=== PATIENT | male | born 1995 | race Two or more races ===

== ENCOUNTER 2017-01-01 10:59 | Emergency (ER) | payer BC ==
[2017-01-01 11:08] VITALS: BP 143/78; PULSE 72; TEMP 98.6; BMI 22.0
[2017-01-01] MEDS ORDERED: DEXAMETHASONE SOD PHOSPHATE 10 MG/1 ML VIAL IM ONE (11:41)
[2017-01-01] MEDS ORDERED: DEXAMETHASONE SOD PHOSPHATE 10 MG/1 ML VIAL ONE (11:43)
--- NOTE | 2017-01-01 11:50 | PDOC ---
History of Present Illness - General Chief Complaint: Sore Throat Stated Complaint: THROAT PAIN Time Seen by Provider: 01/01/17 11:13 History Source: Patient Exam Limitations: No Limitations - History of Present Illness Initial Comments: 01/01/17 11:47 21 yr male with c/o sore throat worse with swallowing. no fever pain for 3 days. Past History - Travel Traveled outside of the country in the last 30 days: No Close contact w/someone who was outside of country & ill: No - Past Medical History Allergies/Adverse Reactions: Allergies Allergy/AdvReac Type Severity Reaction Status Date / Time No Known Allergies Allergy Verified 01/01/17 11:04 Home Medications: Ambulatory Orders No Home Medications 0 dose .ROUTE UTDICT 09/02/12 Acetaminophen W/ Codeine #3 [Tylenol # 3 -] 1 tab PO Q6H PRN #10 tablet MDD 6 tabs 01/01/17 Penicillin V Potassium [Pen Vee K -] 500 mg PO BID #20 tablet 01/01/17 Other medical history: denies - Family Disease History Comment:: 01/01/17 11:47 none - Psycho/Social/Smoking Cessation Hx Anxiety: No Suicidal Ideation: No Smoking Status: No Smoking History: Never smoked Number of Cigarettes Smoked Daily: 0 Information on smoking cessation initiated: No Hx Alcohol Use: No Drug/Substance Use Hx: No Substance Use Type: None Review of Systems - Review of Systems Able to Perform ROS?: Yes Is the patient limited Rwandan proficient: No Constitutional: No: Symptoms Reported HEENTM: Yes: See HPI Respiratory: No: Symptoms reported Cardiac (ROS): No: Symptoms Reported ABD/GI: No: Symptoms Reported : No: Symptoms Reported Musculoskeletal: No: Symptoms Reported Integumentary: No: Symptoms Reported Neurological: No: Symptoms reported *Physical Exam - Vital Signs Last Vital Signs Temp Pulse Resp BP Pulse Ox 98.6 F 72 18 143/78 100 01/01/17 11:03 01/01/17 11:03 01/01/17 11:03 01/01/17 11:03 01/01/17 11:03 - Physical Exam General Appearance: Yes: Nourished, Appropriately Dressed HEENT: positive: EOMI, ERKIA, Pharyngeal Erythema, Tonsillar Erythema Neck: positive: Lymphadenopathy (R). negative: Tender Respiratory/Chest: positive: Lungs Clear, Normal Breath Sounds. 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, Fully Oriented, Alert, Normal Mood/ Affect, Normal Response, Motor Strength 02/12 ED Treatment Course - Medications Given in the ED: ED Medications Discontinued Medications Generic Name Dose Route Start Last Admin Trade Name Freq PRN Reason Stop Dose Admin Dexamethasone Sodium Phosphate 10 mg 01/01/17 11:41 01/01/17 11:45 Decadron Injection - IM 01/01/17 11:42 10 mg ONCE ONE Administration Medical Decision Making - Medical Decision Making 01/01/17 11:48 cc: sore throat, 3 days getting worse will swab for strep decadron IM *DC/Admit/Observation/Transfer Diagnosis at time of Disposition: Pharyngitis Qualifiers: Pharyngitis/tonsillitis etiology: unspecified etiology Qualified Code(s): J02.9 - Acute pharyngitis, unspecified - Discharge Dispostion Disposition: HOME Condition at time of disposition: Good - Prescriptions Prescriptions: Penicillin V Potassium [Pen Vee K -] 500 mg PO BID #20 tablet Acetaminophen W/ Codeine #3 [Tylenol # 3 -] 1 tab PO Q6H PRN #10 tablet MDD 6 tabs PRN Reason: Severe Pain - Referrals Referrals: Home Raya MD [Staff Physician] - - Patient Instructions Additional Instructions: gargle with warm salt water 4-5 times a day soft foods ice pops, jello ice cream take the antibiotics as prescribed for 10 days return to ER for any worsening symptoms or with the ENT for follow up take tylenol #3 for severe pain take motrin 600mg for mild to moderate pain
[2017-01-01] MEDS ORDERED: IBUPROFEN 600 MG TABLET (FP) PO ONE (12:10)
[2017-01-01] MEDS ORDERED: IBUPROFEN 400 MG TABLET (FP) PO ONE (12:12)
== END 2017-01-01 12:24 | disposition home or self-care (01) ==
LOC: JERFT 10:59 → JER 10:59 → JERFT 12:24
PROC: 3E023GC Introduction of Other Therapeutic Substance into Muscle, Percutaneous Approach (ICD-10-PCS; principal; 2017-01-01)
DX: J02.9 Acute pharyngitis, unspecified (principal)
CPT/HCPCS: 87070; 87430; 99281-25

== ENCOUNTER 2017-01-03 13:40 | Emergency (ER) | payer BC ==
[2017-01-03 13:45] VITALS: BP 141/75; PULSE 67; TEMP 99.3; BMI 24.4
[2017-01-03] MEDS ORDERED: KETOROLAC TROMETHAMINE 30 MG/1 ML VIAL ONE (14:14)
[2017-01-03] MEDS ORDERED: KETOROLAC TROMETHAMINE 30 MG/1 ML VIAL IVPUSH ONE (14:14)
[2017-01-03] MEDS ORDERED: DEXAMETHASONE SOD PHOSPHATE 10 MG/1 ML VIAL ONE (14:14)
[2017-01-03] MEDS ORDERED: SODIUM CHLORIDE 1,000 ML IV STA (14:15)
[2017-01-03] MEDS ORDERED: DEXAMETHASONE SOD PHOSPHATE 10 MG/1 ML VIAL IVPUSH ONE (14:15)
[2017-01-03] MEDS ORDERED: SODIUM CHLORIDE 1,000 ML IV ONE (14:16)
--- NOTE | 2017-01-03 14:26 | PDOC ---
History of Present Illness - General Chief Complaint: Sore Throat Stated Complaint: PAIN Time Seen by Provider: 01/03/17 14:05 History Source: Patient Exam Limitations: No Limitations - History of Present Illness Initial Comments: 01/03/17 14:41 Was seen here for severe throat pain, rapid strep test was negative, but patient placed on penicillin and given Tylenol 3 for pain relief. A dose of Decadron while he was in the emergency department and patient states felt some improvement that evening. However the past couple days have progressively become worse where he is now unable to tolerate by mouth fluids, feels feverish , and throat pain has progressively become worse. Has been using ibuprofen in the Tylenol 3 with minimal resolved. Denies cough, runny nose, any abdominal pain although is hungry as he is unable to eat. Timing/Duration: reports: getting worse Severity: reports: moderate, severe Associated Symptoms: reports: fever/chills, headache, sore throat. denies: nasal congestion, nasal drainage Past History - Travel Traveled outside of the country in the last 30 days: No Close contact w/someone who was outside of country & ill: No - Past Medical History Allergies/Adverse Reactions: Allergies Allergy/AdvReac Type Severity Reaction Status Date / Time No Known Allergies Allergy Verified 01/03/17 13:45 Home Medications: Ambulatory Orders No Home Medications 0 dose .ROUTE UTDICT 09/02/12 Acetaminophen W/ Codeine #3 [Tylenol # 3 -] 1 tab PO Q6H PRN #10 tablet MDD 6 tabs 01/01/17 Penicillin V Potassium [Pen Vee K -] 500 mg PO BID #20 tablet 01/01/17 Oxycodone HCl/Acetaminophen [Percocet 5-325 mg Tablet -] 1 - 2 tab PO Q4H PRN # 10 tablet MDD 4 01/03/17 Prednisone [Deltasone -] 20 mg PO BID #10 tablet 01/03/17 Other medical history: NONE - Psycho/Social/Smoking Cessation Hx Anxiety: No Suicidal Ideation: No Smoking Status: No Smoking History: Never smoked Number of Cigarettes Smoked Daily: 0 Hx Alcohol Use: No Drug/Substance Use Hx: No Substance Use Type: None Review of Systems - Review of Systems Able to Perform ROS?: Yes Is the patient limited Greenlandic proficient: Yes Constitutional: Yes: Symptoms Reported, See HPI, Fever, Loss of Appetite, Malaise HEENTM: Yes: Symptoms Reported, See HPI, Throat Pain, Throat Swelling, Difficulty Swallowing Respiratory: Yes: See HPI. No: Symptoms reported, Cough, Wheezing ABD/GI: Yes: See HPI. No: Symptoms Reported : No: See HPI Musculoskeletal: Yes: Symptoms Reported, See HPI, Muscle Pain, Muscle Weakness Integumentary: No: Symptoms Reported All Other Systems: Reviewed and Negative *Physical Exam - Vital Signs Last Vital Signs Temp Pulse Resp BP Pulse Ox 99.3 F 67 20 141/75 100 01/03/17 13:41 01/03/17 13:41 01/03/17 13:41 01/03/17 13:41 01/03/17 13:41 - Physical Exam General Appearance: Yes: Nourished, Appropriately Dressed, Mild Distress, Moderate Distress HEENT: positive: TMs Normal, Muffled/Hoarse voice, Pharyngeal Erythema (no exudate or uvula deviation), Tonsillar Erythema. negative: Normal ENT Inspection, Pharynx Normal, Tonsillar Exudate Neck: positive: Tender, Supple, Lymphadenopathy (R), Lymphadenopathy (L) Respiratory/Chest: positive: Lungs Clear, Normal Breath Sounds. negative: Rhonchi, Wheezing Cardiovascular: positive: Regular Rate Gastrointestinal/Abdominal: positive: Normal Bowel Sounds, Soft. 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 Microbiology reports negative throat culture Medical Decision Making - Medical Decision Making 01/03/17 17:24 Much improved after 3 L of IV fluid, Decadron 10 mg, Toradol 30 mg IV. Patient states still has pain however is much improved from his initial arrival symptoms. Will follow-up with his PMD, and understands if symptoms worsen, worsened fever, swelling to throat will follow-up either here or at larger institution. Will continue prednisone, complete the penicillin and has 10 Percocet tablets for severe pain *DC/Admit/Observation/Transfer Diagnosis at time of Disposition: Viral pharyngitis - Discharge Dispostion Disposition: HOME Condition at time of disposition: Stable Admit: No - Prescriptions Prescriptions: Prednisone [Deltasone -] 20 mg PO BID #10 tablet Oxycodone HCl/Acetaminophen [Percocet 5-325 mg Tablet -] 1 - 2 tab PO Q4H PRN # 10 tablet MDD 4 PRN Reason: Pain - Patient Instructions Printed Discharge Instructions: DI for Viral Pharyngitis Additional Instructions: Rest, drink lots of fluids: Teas, water, soups, Pedialyte Saltwater gargles Steamy showers/seem to face break up mucus Avoid contact with others until fevers and cough resolved Lots of handwashing and good hygiene Continue [id number] medications for symptomatic relief Tylenol or Motrin for fever and pain Continue penicillin as directed Continue prednisone as directed May use Percocet for severe pain Followup with private physician in one to 2 days as needed Return to emergency department for worsened symptoms, fevers, dehydration - Post Discharge Activity Work/School Note: Back to Work
== END 2017-01-03 17:36 | disposition home or self-care (01) ==
LOC: JERFT 13:40 → JER 13:40 → JERFT 17:36
PROC: 3E0337Z Introduction of Electrolytic and Water Balance Substance into Peripheral Vein, Percutaneous Approach (ICD-10-PCS; principal; 2017-01-03)
PROC: 3E0333Z Introduction of Anti-inflammatory into Peripheral Vein, Percutaneous Approach (ICD-10-PCS; 2017-01-03)
PROC: 3E0333Z Introduction of Anti-inflammatory into Peripheral Vein, Percutaneous Approach (ICD-10-PCS; 2017-01-03)
DX: J02.9 Acute pharyngitis, unspecified (principal); B97.89 Other viral agents as the cause of diseases classified elsewhere
CPT/HCPCS: 36415; 86308; 99281-25

== ENCOUNTER 2017-05-01 21:03 | Emergency (ER) | payer OTHER, BC ==
[2017-05-01 21:12] VITALS: BP 124/58; PULSE 80; TEMP 99; BMI 21.4
[2017-05-01] MEDS ORDERED: IBUPROFEN 600 MG TABLET (FP) PO ONE ×2 (21:57→22:28)
[2017-05-01] MEDS ORDERED: METHOCARBAMOL 500 MG TABLET PO ONE (21:57)
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
--- NOTE | 2017-05-01 22:24 | PDOC ---
Attending Attestation - Resident Resident Name: Jama Garcia - HPI HPI: 05/02/17 01:36 as above - Physicial Exam PE: 05/02/17 01:36 asgree with resident - Medical Decision Making 05/02/17 01:36 home with muscle relaxants and motrin and tylenol. Rest.
[2017-05-01] MEDS ORDERED: METHOCARBAMOL 500 MG TABLET ONE (22:28)
== END 2017-05-01 22:55 | disposition home or self-care (01) ==
LOC: JER 21:03 → JERFT 21:03 → JER 22:55
DX: S39.012A Strain of muscle, fascia and tendon of lower back, initial encounter (principal); V43.62XA Car passenger injured in collision with other type car in traffic accident, initial encounter; W22.12XA Striking against or struck by front passenger side automobile airbag, initial encounter; Y92.488 Other paved roadways as the place of occurrence of the external cause; Y93.89 Activity, other specified
CPT/HCPCS: 99281-25

== ENCOUNTER 2019-04-17 09:07 | Emergency (ER) | payer SELFPAY ==
[2019-04-17 09:18] VITALS: BP 139/81; PULSE 60; TEMP 98.2; BMI 20.9
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
== END 2019-04-17 10:19 | disposition home or self-care (01) ==
LOC: JERFT 09:07
CPT/HCPCS: 73030-TC-RT-FY; 99281-25

== ENCOUNTER 2020-04-09 09:11 | Emergency (ER) | payer BC ==
[2020-04-09 09:17] VITALS: BP 129/80; PULSE 61; TEMP 98.2; BMI 20.7
--- NOTE | 2020-04-09 09:17 | PDOC ---
Rapid Medical Evaluation Time Seen by Provider: 04/09/20 09:12 Medical Evaluation: Allergies Allergy/AdvReac Type Severity Reaction Status Date / Time No Known Allergies Allergy Verified 04/17/19 09:18 04/09/20 09:13 CC: lower abd cramping intermittently x 3 days, no c/o bowel or urinary difficulties Exam: Vss, No abd distention, mild tenderness to midsuprapubic and rt suprapubic area, no rebound or guarding plan: urine, kub Discharge Disposition - Diagnosis Abdominal pain - Referrals - Patient Instructions - Post Discharge Activity
--- NOTE | 2020-04-09 10:06 | PDOC ---
History of Present Illness - General Chief Complaint: Pain Stated Complaint: LWR BD PAIN Time Seen by Provider: 04/09/20 09:12 History Source: Patient - History of Present Illness Timing/Duration: reports: constant Abdominal Pain Onset Location: reports: other (lower abd) Past History - Medical History Allergies/Adverse Reactions: Allergies Allergy/AdvReac Type Severity Reaction Status Date / Time No Known Allergies Allergy Verified 04/09/20 09:13 COPD: No - Psycho-Social/Smoking History Smoking Status: No Smoking History: Never smoked Have you smoked in the past 12 months: No Number of Cigarettes Smoked Daily: 0 - Substance Abuse Hx (Audit-C & DAST Scrn) How often the patient has a drink containing alcohol: Monthly or less Number of drinks the patient has on a typical day: 1 or 2 How often the patient has six or more drinks on one occasion: Never Score: In Men: 4 or > Positive; In Women: 3 or > Positive: 1 Screen Result (Pos requires Nsg. Audit-10AR): Negative In the last yr the pt used illegal drug/Rx for NonMed reason: No Score: Yes response is considered Positive: 0 Screen Result (Positive result requires Nsg. DAST-10): Negative Review of Systems - Review of Systems Constitutional: No: Chills, Fever ABD/GI: No: Blood Streaked Bowels, Constipated, Diarrhea, Nausea, Vomiting : No: Dysuria, Discharge, Flank Pain, Testicular Mass, Testicular Swelling, Testicular Pain *Physical Exam - Vital Signs Last Vital Signs Temp Pulse Resp BP Pulse Ox 98.2 F 61 18 129/80 100 04/09/20 09:13 04/09/20 09:13 04/09/20 09:13 04/09/20 09:13 04/09/20 09:13 - Physical Exam General Appearance: Yes: Appropriately Dressed. No: Apparent Distress HEENT: positive: Normal Voice Neck: positive: Supple Respiratory/Chest: negative: Respiratory Distress Gastrointestinal/Abdominal: positive: Tender (minimal ttp to R mid abd), Soft. negative: Distended, Guarding, Rebound Musculoskeletal: negative: CVA Tenderness Integumentary: positive: Dry, Warm Neurologic: positive: Fully Oriented, Alert, Normal Mood/Affect ED Treatment Course - LABORATORY CBC & Chemistry Diagram: 04/09/20 10:30 04/09/20 10:30 Medical Decision Making - Medical Decision Making 04/09/20 10:02 24 yo male, no sig hx, here w/ ongoing lower abd pain x 3 days. Describes pain as "It feels like I have to go to the bathroom". No change in BM, n/v/f/c, dysuria, testes pain or swelling. No h/o same see exam Possibly appy though unimpressive abd exam Stable and well blake -labs/CT pending -declines pain control 04/09/20 12:[address] w/ no e/o appy, +mod stool to distal sigmoid seen. Pt remains well blake and stable w/ no RLQ tenderness on rpt exam. Dc to increase hydration and fiber in diet. To return as needed Discharge - Discharge Information Problems reviewed: Yes Clinical Impression/Diagnosis: Lower abdominal pain Condition: Good Disposition: HOME - Follow up/Referral - Patient Discharge Instructions Patient Printed Discharge Instructions: DI for Abdominal Pain-Adult Additional Instructions: The cause of your abdominal pain is unclear at this time as your labs and CAT scan did not reveal an obvious source Your CAT scan however did reveal moderate amount of stool in your lower abdomen. Increase hydration and increase fiber in your diet Follow-up with your PMD as needed - Post Discharge Activity Work/Back to School Note: Back to Work
[2020-04-09 10:49] LABS: BASO % 0.3 % (0-2.0); EOS % 7.2 % (0-4.5); HEMATOCRIT 47.4 % (35.4-49); HEMOGLOBIN 15.6 GM/dL (11.7-16.9); LYMPH % 16.8 % (8-40); MCH 28.9 pg (25.7-33.7); MCHC 32.9 g/dl (32.0-35.9); MEAN CELL VOLUME 87.9 fl (80-96); MEAN PLT VOLUME 8.3 fl (7.5-11.1); MONO % 6.5 % (3.8-10.2); NEUT % 69.2 % (42.8-82.8); PLATELET COUNT 273 K/MM3 (134-434); RBC 5.39 M/mm3 (4.00-5.60); RDW 14.5 % (11.9-15.9); WHITE BLOOD COUNT 11.7 K/mm3 (4.0-10.0)
[2020-04-09 10:56] LABS: INR 1.1 (0.83-1.09)
[2020-04-09 11:04] LABS: PH,URINE 6.5 (5.0-8.0); URINE APPEARANCE CLEAR; URINE BILIRUBIN NEGATIVE (NEGATIVE); URINE COLOR YELLOW; URINE GLUCOSE (UA) NEGATIVE (NEGATIVE); URINE KETONE TRACE (NEGATIVE); URINE LEUK ESTERASE NEGATIVE (NEGATIVE); URINE NITRITE NEGATIVE (NEGATIVE); URINE PROTEIN NEGATIVE (NEGATIVE); URINE UROBILINOGEN 0.2 mg/dL (0.2-1.0)
[2020-04-09 11:22] LABS: ALBUMIN 4.7 g/dl (3.4-5.0); BILIRUBIN,TOTAL 0.6 mg/dL (0.2-1); BLOOD UREA NITROGEN 17.4 mg/dL (7-18); CALCIUM 9.6 mg/dL (8.5-10.1); CREATININE 0.9 mg/dL (0.55-1.3); POTASSIUM 4.2 mmol/L (3.5-5.1); TOT PROT 7.9 g/dl (6.4-8.2)
== END 2020-04-09 12:30 | disposition home or self-care (01) ==
LOC: JER 09:11
DX: R10.30 Lower abdominal pain, unspecified (principal)
CPT/HCPCS: 36415; 74018-TC-FY; 74177-TC; 80053; 81003; 85025; 85610; 86850; 86900; 86901; 99284-25; Q9967

== ENCOUNTER 2020-04-14 06:40 | Emergency (ER) | payer BC ==
[2020-04-14 07:16] VITALS: BP 120/82; PULSE 72; TEMP 98.4; BMI 20.3
--- NOTE | 2020-04-14 07:34 | PDOC ---
History of Present Illness - General Chief Complaint: Pain Stated Complaint: ABD PAIN Time Seen by Provider: 04/14/20 07:10 - History of Present Illness Initial Comments: 04/14/20 07:32 24 M with no PMH came back to the ED with CC of abdominal pain. He came to the ED last wednesday (04/09/2020) with the same complaint. We ordered abdominal Xray and CT scan which no abnormality. His diagnosis was constipation. When asked about the OTC medication for constipation, he denied using OTC laxative and fiber. Today, pain localized around the suprapubic region, mild pain, and not radiating in nature. He denies fever, chills, vomiting, blood in blood, chest pain, change of vision, headache. PMH: none PSH: none Med: none Allergy: none SS: denies smoking, occasional drink, denies drug. ROS: GENERAL/CONSTITUTIONAL: No fever or chills. No weakness. HEAD, EYES, EARS, NOSE AND THROAT: No change in vision. No ear pain or discharge. No sore throat. CARDIOVASCULAR: No chest pain or shortness of breath. RESPIRATORY: No cough, wheezing, or hemoptysis. GASTROINTESTINAL: No vomiting, diarrhea, Positive for nausea and constipation. GENITOURINARY: No dysuria, frequency, or change in urination. MUSCULOSKELETAL: No joint or muscle swelling or pain. No neck or back pain. SKIN: No rash NEUROLOGIC: No headache, vertigo, loss of consciousness, or change in strength/sensation. ENDOCRINE: No increased thirst. No abnormal weight change. HEMATOLOGIC/LYMPHATIC: No anemia, easy bleeding, or history of blood clots. ALLERGIC/IMMUNOLOGIC: No hives or skin allergy. 04/14/20 07:35 Past History - Medical History Allergies/Adverse Reactions: Allergies Allergy/AdvReac Type Severity Reaction Status Date / Time No Known Allergies Allergy Verified 04/14/20 07:18 Home Medications: Ambulatory Orders NK [No Known Home Medication] 04/14/20 COPD: No - Psycho-Social/Smoking History Smoking Status: No Smoking History: Never smoked Have you smoked in the past 12 months: No Number of Cigarettes Smoked Daily: 0 - Substance Abuse Hx (Audit-C & DAST Scrn) How often the patient has a drink containing alcohol: Monthly or less Number of drinks the patient has on a typical day: 1 or 2 How often the patient has six or more drinks on one occasion: Never Score: In Men: 4 or > Positive; In Women: 3 or > Positive: 1 Screen Result (Pos requires Nsg. Audit-10AR): Negative In the last yr the pt used illegal drug/Rx for NonMed reason: No Score: Yes response is considered Positive: 0 Screen Result (Positive result requires Nsg. DAST-10): Negative *Physical Exam - Vital Signs Last Vital Signs Temp Pulse Resp BP Pulse Ox 98.4 F 72 17 120/82 96 04/14/20 07:14 04/14/20 07:14 04/14/20 07:14 04/14/20 07:14 04/14/20 07:14 - Physical Exam 04/14/20 07:41 GENERAL: Awake, alert, and fully oriented, in no acute distress HEAD: No signs of trauma EYES: PERRLA, EOMI, sclera anicteric, conjunctiva clear ENT: Auricles normal inspection, hearing grossly normal, nares patent, oropharynx clear without exudates. Moist mucosa NECK: Normal ROM, supple, no lymphadenopathy, JVD, or masses LUNGS: Breath sounds equal, clear to auscultation bilaterally. No wheezes, and no crackles HEART: Regular rate and rhythm, normal S1 and S2, no murmurs, rubs or gallops ABDOMEN: Soft, nontender, normoactive bowel sounds. No guarding, no rebound. No masses, No CVA tenderness EXTREMITIES: Normal range of motion, no edema. No clubbing or cyanosis. No cords, erythema, or tenderness NEUROLOGICAL: Cranial nerves II through XII grossly intact. Normal speech, normal gait SKIN: Warm, Dry, normal turgor, no rashes or lesions noted. Medical Decision Making - Medical Decision Making 04/14/20 07:42 24 M with no PMH presented to the ED with abdominal pain. Based on the History and physical exam, we are comfortable that this is unresolved constipation. We recommended him to get OTC laxative for the conspitaion problem, and instruct him to take daily fiber such as Metamucil. Discharge - Discharge Information Problems reviewed: Yes Clinical Impression/Diagnosis: Constipation Condition: Good Disposition: HOME - Admission No - Follow up/Referral - Patient Discharge Instructions Additional Instructions: Please go to [facility] or any pharmacy for OTC laxative, and encourage daily fiber use. If worsening, please come back. - Post Discharge Activity
== END 2020-04-14 08:07 | disposition home or self-care (01) ==
LOC: JER 06:40
DX: K59.00 Constipation, unspecified (principal)
CPT/HCPCS: 99284-25

== ENCOUNTER 2022-05-13 16:54 | Emergency (ER) | payer SELFPAY ==
[2022-05-13 17:18] VITALS: BP 124/87; PULSE 74; RESP 18; TEMP 98.2; BMI 21.4
== END 2022-05-13 18:40 | disposition home or self-care (01) ==
LOC: JERFT 16:54
DX: U07.1 COVID-19 (principal)
CPT/HCPCS: 0241U-QW; 71046-TC-FY; 99284-25

== ENCOUNTER 2024-02-02 04:04 | Day surgery (SDC) | payer OTHER ==
[2024-01-27 13:39] VITALS: BMI 26.6
[2024-02-02 07:14] VITALS: RESP 18; TEMP 97.8
[2024-02-02] MEDS ORDERED: MIDAZOLAM HCL 2 MG/2 ML SINGLE DOSE VIAL ONE (08:31)
[2024-02-02] MEDS ORDERED: ROCURONIUM BROMIDE 50 MG/5 ML SYRINGE ONE ×2 (08:31→09:53)
[2024-02-02] MEDS ORDERED: PROPOFOL 20 ML ONE (08:32)
[2024-02-02] MEDS ORDERED: FENTANYL CITRATE/PF 50 MCG/ML VIAL ONE ×4 (08:32→11:42)
[2024-02-02] MEDS ORDERED: COCAINE HCL 4% TOPICAL SOLUTION 4 ML BOTTLE TP ONE (08:39)
[2024-02-02] MEDS ORDERED: LIDOCAINE 1%/EPI 1:100000 (20 ML MULTI DOSE VIAL) ONE (08:42)
[2024-02-02] MEDS ORDERED: ONDANSETRON 4 MG/2 ML VIAL IVPUSH PRN (08:48)
[2024-02-02] MEDS ORDERED: ACETAMINOPHEN 500 MG TABLET (FP) PO PRN (08:48)
[2024-02-02] MEDS: LIDOCAINE 1%/EPI 1:100000 (20 ML MULTI DOSE VIAL) IJ ONE ×2 (09:28)
[2024-02-02] MEDS ORDERED: BACITRACIN ZINC 15 GM TUBE TOPICAL OINTMENT ONE (10:10)
[2024-02-02] MEDS ORDERED: ACETAMINOPHEN INJECTION 100 ML IVPB ONE (11:59)
[2024-02-02] MEDS ORDERED: HYDROmorphone HCl 2 MG/ML VIAL IVPUSH PRN (12:00)
[2024-02-02] MEDS: ACETAMINOPHEN 1000 MG/100 ML BAG IVPB ONE (12:00)
[2024-02-02] MEDS ORDERED: HYDROmorphone HCl 2 MG/ML VIAL ONE (12:22)
[2024-02-02] MEDS: HYDROmorphone HCl 2 MG/ML VIAL IVPUSH ONE (12:24)
[2024-02-02 14:01] VITALS: BP 118/70; PULSE 62
== END 2024-02-02 14:06 | disposition home or self-care (01) ==
LOC: JASU-SURG 04:04
PROVIDERS: ATTEND Otolaryngology
PROC: 09BU8ZZ Excision of Right Ethmoid Sinus, Via Natural or Artificial Opening Endoscopic (ICD-10-PCS; 2024-02-02)
PROC: 8E09XBZ Computer Assisted Procedure of Head and Neck Region (ICD-10-PCS; 2024-02-02)
PROC: 09BK8ZZ Excision of Nasal Mucosa and Soft Tissue, Via Natural or Artificial Opening Endoscopic (ICD-10-PCS; 2024-02-02)
PROC: 09BV8ZZ Excision of Left Ethmoid Sinus, Via Natural or Artificial Opening Endoscopic (ICD-10-PCS; principal; 2024-02-02 09:00)
DX: J32.4 Chronic pansinusitis (principal); J33.9 Nasal polyp, unspecified; R43.0 Anosmia
CPT/HCPCS: 88304-TC; 88311-TC; 94760; J0131

== ENCOUNTER 2024-05-12 11:39 | Inpatient (IN) | payer OTHER ==
[2024-05-12] MEDS ORDERED: FAMOTIDINE 20 MG/50 ML IVPB 20 MG/50 ML MG IVPB ONE (13:12)
[2024-05-12] MEDS ORDERED: ACETAMINOPHEN INJECTION 100 ML IVPB ONE (13:12)
[2024-05-12] MEDS: FAMOTIDINE 20 MG TABLET PO ONE (13:16)
[2024-05-12] MEDS: FAMOTIDINE 20 MG/50 ML IVPB 20 MG/50 ML MG IVPB ONE (13:26)
[2024-05-12] MEDS: ACETAMINOPHEN 1000 MG/100 ML BAG IVPB ONE (13:26)
[2024-05-12 13:36] LABS: BASO % 0.4 % (0-2.0); EOS % 6.7 % (0-4.5); HEMATOCRIT 43.6 % (35.4-49); HEMOGLOBIN 14.6 GM/dL (11.7-16.9); LYMPH % 23.2 % (8-40); MCH 28.4 pg (25.7-33.7); MCHC 33.4 g/dl (32.0-35.9); MEAN CELL VOLUME 84.8 fl (80-96); MEAN PLT VOLUME 7.3 fl (7.5-11.1); MONO % 8.8 % (3.8-10.2); NEUT % 60.9 % (42.8-82.8); PLATELET COUNT 311 10^3/uL (134-434); RBC 5.14 M/mm3 (4.00-5.60); RDW 14.7 % (11.9-15.9); WHITE BLOOD COUNT 11.5 K/mm3 (4.0-10.0)
[2024-05-12 14:11] LABS: POTASSIUM 4.3 mmol/L (3.5-5.1)
[2024-05-12 14:13] LABS: ALBUMIN 4.1 g/dl (3.4-5.0); BLOOD UREA NITROGEN 11.9 mg/dL (7-18); CALCIUM 9.5 mg/dL (8.5-10.1)
[2024-05-12 14:16] LABS: CREATININE 0.9 mg/dL (0.55-1.3)
[2024-05-12 14:18] LABS: BILIRUBIN,TOTAL 0.5 mg/dL (0.2-1); TOT PROT 7.5 g/dl (6.4-8.2)
[2024-05-12 14:54] LABS: PH,URINE 6.5 (5.0-8.0); URINE APPEARANCE CLEAR; URINE BILIRUBIN NEGATIVE (NEGATIVE); URINE COLOR YELLOW; URINE GLUCOSE (UA) NEGATIVE (NEGATIVE); URINE KETONE 1+ (NEGATIVE); URINE LEUK ESTERASE NEGATIVE (NEGATIVE); URINE NITRITE NEGATIVE (NEGATIVE); URINE PROTEIN NEGATIVE (NEGATIVE)
[2024-05-12] MEDS ORDERED: MORPHINE SULFATE 2 MG/ML SYRINGE ONE (19:25)
[2024-05-12] MEDS: morphine SULFATE 4 MG/ML VIAL IVPUSH ONE (19:38)
[2024-05-12] MEDS: SODIUM CHLORIDE 0.9% 500 ML INFUS.BAG IV ONE (19:39)
[2024-05-12] MEDS: SODIUM CHLORIDE 1,000 ML IV SCH (23:03)
[2024-05-13 04:26] VITALS: BMI 28.9
[2024-05-13 09:39] LABS: BASO % 0.4 % (0-2.0); EOS % 8.9 % (0-4.5); HEMATOCRIT 40.5 % (35.4-49); HEMOGLOBIN 13.5 GM/dL (11.7-16.9); LYMPH % 24.2 % (8-40); MCH 28.3 pg (25.7-33.7); MCHC 33.4 g/dl (32.0-35.9); MEAN CELL VOLUME 84.7 fl (80-96); MEAN PLT VOLUME 7.9 fl (7.5-11.1); NEUT % 57.5 % (42.8-82.8); PLATELET COUNT 294 10^3/uL (134-434); RBC 4.78 M/mm3 (4.00-5.60); RDW 14.6 % (11.9-15.9); WHITE BLOOD COUNT 9.8 K/mm3 (4.0-10.0)
[2024-05-13 09:45] LABS: INR 1.13 (0.83-1.09); PROTHROMBIN TIME (PATIENT) 12.9 SEC (9.7-13.0)
[2024-05-13] MEDS: ACETAMINOPHEN 1000 MG/100 ML BAG IVPB PRN (10:50)
[2024-05-13 11:15] LABS: BLOOD UREA NITROGEN 13.8 mg/dL (7-18); CALCIUM 8.4 mg/dL (8.5-10.1); POTASSIUM 3.9 mmol/L (3.5-5.1)
[2024-05-13 11:16] LABS: ALBUMIN 3.3 g/dl (3.4-5.0); BILIRUBIN,TOTAL 0.9 mg/dL (0.2-1)
[2024-05-13 11:20] LABS: MAGNESIUM 1.9 mg/dL (1.8-2.4); PHOSPHOROUS 3.1 mg/dL (2.5-4.9)
[2024-05-13] MEDS: DEXTROSE 5%-NORMAL SALINE 1,000 ML IV SCH (11:58)
[2024-05-14 08:08] LABS: POTASSIUM 3.9 mmol/L (3.5-5.1)
[2024-05-14 08:10] LABS: ALBUMIN 3.7 g/dl (3.4-5.0); BLOOD UREA NITROGEN 6.7 mg/dL (7-18)
[2024-05-14 08:15] LABS: BILIRUBIN,TOTAL 0.7 mg/dL (0.2-1); TOT PROT 6.8 g/dl (6.4-8.2)
[2024-05-14 08:21] LABS: BASO % 0.7 % (0-2.0); EOS % 10.9 % (0-4.5); HEMATOCRIT 44.1 % (35.4-49); HEMOGLOBIN 14.7 GM/dL (11.7-16.9); MCH 28.5 pg (25.7-33.7); MCHC 33.3 g/dl (32.0-35.9); MEAN CELL VOLUME 85.5 fl (80-96); MEAN PLT VOLUME 7.6 fl (7.5-11.1); MONO % 10.6 % (3.8-10.2); NEUT % 48.8 % (42.8-82.8); PLATELET COUNT 310 10^3/uL (134-434); RBC 5.16 M/mm3 (4.00-5.60); RDW 14.3 % (11.9-15.9); WHITE BLOOD COUNT 9.8 K/mm3 (4.0-10.0)
[2024-05-14 10:12] VITALS: RESP 18
[2024-05-14] MEDS ORDERED: ALBUTEROL SO4 2.5/IPRATROPIUM 0.5 INH SOL 3 ML VIAL.NEB. NEB PRN (21:53)
[2024-05-14] MEDS ORDERED: ALBUTEROL SO4 HFA INHALER IH PRN (21:54)
[2024-05-14] MEDS: ALBUTEROL SO4 2.5/IPRATROPIUM 0.5 INH SOL 3 ML VIAL.NEB. NEB ONE (22:56)
[2024-05-15] MEDS: BUDESONIDE/FORMETEROL FUMARATE 160/4.5 mcg INHALER IH ONE (00:18)
[2024-05-15] MEDS: LACTATED RINGERS SOLUTION 1,000 ML/1,000 ML INFUS.BAG IV SCH ×2 (09:01→15:15)
[2024-05-15] MEDS: BUDESONIDE/FORMETEROL FUMARATE 160/4.5 mcg INHALER IH SCH ×2 (09:02→21:14)
[2024-05-15 11:06] LABS: BASO % 0.6 % (0-2.0); EOS % 8.6 % (0-4.5); HEMATOCRIT 45.9 % (35.4-49); HEMOGLOBIN 15.1 GM/dL (11.7-16.9); INR 1.06 (0.83-1.09); LYMPH % 29.3 % (8-40); MCH 28.1 pg (25.7-33.7); MEAN CELL VOLUME 85.3 fl (80-96); MONO % 11.5 % (3.8-10.2); PLATELET COUNT 305 10^3/uL (134-434); PROTHROMBIN TIME (PATIENT) 12.2 SEC (9.7-13.0); RBC 5.38 M/mm3 (4.00-5.60); RDW 14.2 % (11.9-15.9); WHITE BLOOD COUNT 11.5 K/mm3 (4.0-10.0)
[2024-05-15 11:27] LABS: CHLORIDE 107 mmol/L (98-107); SODIUM 141 mmol/L (136-145)
[2024-05-15 11:35] LABS: CALCIUM 9.4 mg/dL (8.5-10.1)
[2024-05-15 11:36] LABS: ANION GAP 10 mmol/L (4-13); CO2 24 mmol/L (21-32); GLUCOSE,RANDOM 85 mg/dL (74-106)
[2024-05-15 11:39] LABS: SGOT/AST 26 U/L (15-37); SGPT/ALT 30 U/L (13-61)
[2024-05-15 11:41] LABS: BILIRUBIN,TOTAL 0.7 mg/dL (0.2-1); TOT PROT 7.4 g/dl (6.4-8.2)
[2024-05-15 11:42] LABS: ALK PHOS 97 U/L (45-117)
[2024-05-15] MEDS ORDERED: MIDAZOLAM HCL 2 MG/2 ML SINGLE DOSE VIAL ONE (12:38)
[2024-05-15] MEDS ORDERED: SUCCINYLCHOLINE CHLORIDE 200 MG/10 ML SYRINGE ONE (12:38)
[2024-05-15] MEDS ORDERED: ROCURONIUM BROMIDE 50 MG/5 ML SYRINGE ONE (12:38)
[2024-05-15] MEDS ORDERED: PROPOFOL 40 ML ONE (12:38)
[2024-05-15] MEDS ORDERED: BUPIVACAINE HCL/PF 0.25% (2.5MG/ML) 10 ML VIAL ONE (12:40)
[2024-05-15] MEDS ORDERED: HEPARIN NA (PORCINE) 5,000 UNITS/ML 1ML VIAL ONE (12:40)
[2024-05-15] MEDS ORDERED: cefOXitin SODIUM 2 GM VIAL (RESTRICTED TO ID) IVPB ONE (12:40)
[2024-05-15] MEDS: cefOXitin SODIUM 2 GM VIAL (RESTRICTED TO ID) IVPB ONE (13:19)
[2024-05-15] MEDS ORDERED: PROPOFOL 20 ML ONE (13:32)
[2024-05-15] MEDS ORDERED: SUGAMMADEX SODIUM 200 MG/2 ML VIAL ONE (13:38)
[2024-05-15] MEDS: BUPIVACAINE HCL/PF 0.25% (2.5MG/ML) 10 ML VIAL IJ ONE (13:40)
[2024-05-15] MEDS ORDERED: ACETAMINOPHEN INJECTION 100 ML IVPB ONE (14:18)
[2024-05-15] MEDS: ACETAMINOPHEN 1000 MG/100 ML BAG IVPB ONE (14:19)
[2024-05-15] MEDS ORDERED: IBUPROFEN 600 MG TABLET (FP) PO PRN (15:06)
[2024-05-15] MEDS ORDERED: ALBUTEROL SO4 2.5/IPRATROPIUM 0.5 INH SOL 3 ML VIAL.NEB. NEB PRN (15:06)
[2024-05-15] MEDS ORDERED: ALBUTEROL SO4 HFA INHALER IH PRN (15:06)
[2024-05-15] MEDS ORDERED: oxyCODONE HCL 5 MG TABLET PO PRN (15:06)
[2024-05-15] MEDS: CEFTRIAXONE 1 GM in DEXTROSE 5%-WATER - 50 ML IVPB ONE (18:00)
[2024-05-15] MEDS: DOCUSATE SODIUM 100 MG CAPSULE (FP) PO SCH (21:13)
[2024-05-15] MEDS: ACETAMINOPHEN 1000 MG/100 ML BAG IVPB SCH (21:14)
[2024-05-16 07:24] VITALS: BP 124/64; PULSE 63; TEMP 98.1
[2024-05-16 08:47] LABS: BASO % 0.2 % (0-2.0); EOS % 0.4 % (0-4.5); HEMATOCRIT 43.1 % (35.4-49); HEMOGLOBIN 14.3 GM/dL (11.7-16.9); LYMPH % 14.6 % (8-40); MCHC 33.1 g/dl (32.0-35.9); MEAN CELL VOLUME 84.7 fl (80-96); MEAN PLT VOLUME 7.5 fl (7.5-11.1); NEUT % 74.8 % (42.8-82.8); PLATELET COUNT 296 10^3/uL (134-434); RBC 5.09 M/mm3 (4.00-5.60); RDW 14.4 % (11.9-15.9); WHITE BLOOD COUNT 14.7 K/mm3 (4.0-10.0)
[2024-05-16 09:08] LABS: POTASSIUM 4.4 mmol/L (3.5-5.1)
[2024-05-16 09:13] LABS: CALCIUM 9.2 mg/dL (8.5-10.1)
[2024-05-16 09:14] LABS: ALBUMIN 3.7 g/dl (3.4-5.0); BLOOD UREA NITROGEN 8.9 mg/dL (7-18)
[2024-05-16 09:17] LABS: BILIRUBIN,TOTAL 0.6 mg/dL (0.2-1); TOT PROT 6.8 g/dl (6.4-8.2)
== END 2024-05-16 11:51 | disposition home or self-care (01) | DRG 328 ==
LOC: JER 11:39 → JERBED 19:20 → J8W 05-13 03:25
PROVIDERS: ADMIT Internal Medicine; ATTEND Nurse Practitioner Acute Care
PROC: 0DJ64ZZ Inspection of Stomach, Percutaneous Endoscopic Approach (ICD-10-PCS; principal; 2024-05-15 15:15)
DX: K52.9 Noninfective gastroenteritis and colitis, unspecified (principal); J45.909 Unspecified asthma, uncomplicated
CPT/HCPCS: 36415; 74177-TC; 80053; 81003; 82272; 83605; 83690; 83735; 84100; 85025; 85610; 86140; 86850; 86900; 86901; 87040; 87045; 87046; 87206; 87209; 93005; 93010; 94640; 94760; 99285-25; J0131; J1644